=== PATIENT | male | born 2000 | race Caucasian/White ===

== ENCOUNTER 2024-10-11 06:33 | Emergency (ER) | payer SELFPAY ==
[2024-10-11 06:58] VITALS: TEMP 97
[2024-10-11 07:02] VITALS: O2SAT 98
--- NOTE | 2024-10-11 07:18 | ERPHSYRPT ---
- History of Present Illness Time Seen by Provider: 10/11/24 07:05 Historian: patient Exam Limitations: no limitations Patient Subjective Stated Complaint: pt states that he is suppose to have a scope. pt states that he has acid reflux. pt states he has epigastric pain Triage Nursing Assessment: pt ambulated into the er; pt is axo x4; pt is anxio us; c/o abd pain; pt states 7/10 pain to epigastric region; abd is flat, soft, nontender; hyperactive bowel sounds in all quads; c/o nausea, constipation; pt denies vomiting; mucus membranes pink and moist; skin PDW; no respiratory distress present; vitals wnl Physician History: This is a thin 24-year-old white male patient who arrives by private vehicle with a complaint of epigastric pain and reflux of acid symptoms. He has had the symptoms intermittently for the last 3 months. He has been seen in other emergency departments and has had radiographic studies, EKG and his heart evaluated per his report. In the last 3 days his symptoms of acid reflux have worsened and he has associated epigastric pain and nausea. He is not on any medications chronically. He has no primary care provider and is allergic to penicillin. Patient refuses CAT scan of the abdomen and pelvis. He denies chest pain. He denies shortness of breath. The patient informed me that he was told by another emergency department that he requires upper endoscopy. He has yet to schedule an outpatient primary care provider visit to be referred to a specialist to perform an upper endoscopy. Timing/Duration: day(s) (3), worse Quality: burning Abdominal Pain Onset Location: epigastric Pain Radiation: no radiation Severity of Pain-Max: mild (To moderate) Severity of Pain-Current: mild (To moderate) Modifying Factors: Improves With: nothing Associated Symptoms: nausea, No chest pain, No shortness of breath Previous symptoms: same symptoms as today, no recent treatment Allergies/Adverse Reactions: Penicillins Allergy (Verified 10/11/24 06:45) Hx Tetanus, Diphtheria Vaccination/Date Given: Yes Hx Influenza Vaccination/Date Given: No Hx Pneumococcal Vaccination/Date Given: No Immunizations Up to Date: No Travel Risk - International Travel Have you traveled outside of the country in past 3 weeks: No - Emerging Infectious Disease Are you exhibiting symptoms associated with any current EIDs: Yes - Review of Systems Constitutional: No Symptoms Eyes: No Symptoms Ears, Nose, & Throat: No Symptoms Respiratory: No Symptoms Cardiac: No Symptoms Abdominal/Gastrointestinal: Abdominal Pain (Epigastrium burning), Nausea, Constipation, No Vomiting, No Diarrhea Genitourinary Symptoms: No Symptoms Musculoskeletal: No Symptoms Skin: No Symptoms Neurological: No Symptoms Psychological: No Symptoms Endocrine: No Symptoms Hematologic/Lymphatic: No Symptoms Immunological/Allergic: No Symptoms All Other Systems: Reviewed and Negative - Past Medical History Pertinent Past Medical History: Yes Neurological History: No Pertinent History ENT History: No Pertinent History Cardiac History: No Pertinent History Respiratory History: No Pertinent History Endocrine Medical History: No Pertinent History Musculoskeletal History: No Pertinent History GI Medical History: GERD History: No Pertinent History Psycho-Social History: Anxiety Male Reproductive Disorders: No Pertinent History - Past Surgical History Past Surgical History: No - Social History Smoking Status: Current every day smoker Exposure to second hand smoke: No Drug Use: none - Social Determinants of Health Will the patient participate in the screening: Yes Do you worry about a steady place to live?: Yes Do you have any problems with any of the following?: No known problems In the past 12 months,have you had to go without utilities?: No Transportation Issues: No Has anyone in your support network made you feel unsafe?: No Have you or anyone in your house had to go without enough: No Comment: pt states that he is couch hopping - Nursing Vital Signs Nursing Vital Signs: Initial Vital Signs Temperature 97 F 10/11/24 06:45 Pulse Rate 86 10/11/24 06:45 Respiratory Rate 20 10/11/24 06:45 Blood Pressure 120/89 10/11/24 06:45 O2 Sat by Pulse Oximetry 100 10/11/24 06:45 Pain Scale Pain Intensity 7 - Physical Exam General Appearance: no apparent distress, alert, anxiety, thin Eye Exam: PERRL/EOMI, eyes nml inspection Ears, Nose, Throat Exam: normal ENT inspection, moist mucous membranes Neck Exam: normal inspection, non-tender, supple, full range of motion Respiratory Exam: normal breath sounds, lungs clear, airway intact, No chest tenderness, No respiratory distress Cardiovascular Exam: regular rate/rhythm, normal heart sounds, normal peripheral pulses Gastrointestinal/Abdomen Exam: soft, normal bowel sounds, tenderness (Mild epigastric tenderness to palpation), No guarding, No rebound Rectal Exam: not done Back Exam: normal inspection, normal range of motion, No CVA tenderness, No vertebral tenderness Extremity Exam: normal inspection, normal range of motion, pelvis stable Neurologic Exam: alert, oriented x 3, cooperative, wireless internet installer II-XII nml as tested, nml cerebellar function, nml station & gait, sensation nml Skin Exam: normal color, warm, dry Lymphatic Exam: No adenopathy SpO2 Interpretation: normal SpO2: 98 O2 Delivery: Room Air - Course Nursing assessment & vital signs reviewed: Yes Ordered Tests: Active Orders 24 hr Category Date Time Status IV Insertion STAT Care 10/11/24 07:18 Active ACO SDOH Referral ONCE Cons 10/11/24 06:58 Active AMYLASE Stat Lab 10/11/24 07:00 Completed CBC W DIFF Stat Lab 10/11/24 07:00 Completed CMP Stat Lab 10/11/24 07:00 Completed LIPASE Stat Lab 10/11/24 07:00 Completed Medication Summary Discontinued Medications Generic Name Dose Route Start Last Admin Trade Name Freq PRN Reason Stop Dose Admin Al Hydrox/Mg Hydrox/Simethicone Confirm 10/11/24 07:21 Mag Hydrox/Al Hydrox/Simeth 30 Ml Udcup Administered 10/11/24 07:22 Dose 30 ml .ROUTE .STK-MED ONE Lidocaine HCl Confirm 10/11/24 07:21 Lidocaine Hcl 2% Viscous 15 Ml Udcup Administered 10/11/24 07:22 Dose 15 ml .ROUTE .STK-MED ONE Magnesium Hydroxide 45 ml 10/11/24 07:18 10/11/24 07:28 Mag Hydrx/Alum Hyd/Simeth/Lido 45 Ml Bottle PO 10/11/24 07:19 45 ml STAT ONE Administration Ondansetron HCl 4 mg 10/11/24 07:18 10/11/24 07:27 Ondansetron Hcl 4 Mg/2 Ml Vial IV 10/11/24 07:19 4 mg STAT ONE Administration Ondansetron HCl Confirm 10/11/24 07:21 Ondansetron Hcl 4 Mg/2 Ml Vial Administered 10/11/24 07:22 Dose 4 mg .ROUTE .STK-MED ONE Pantoprazole Sodium 40 mg 10/11/24 07:18 10/11/24 07:28 Pantoprazole 40 Mg Vial IV 10/11/24 07:19 40 mg STAT ONE Administration Pantoprazole Sodium Confirm 10/11/24 07:21 Pantoprazole 40 Mg Vial Administered 10/11/24 07:22 Dose [address] ONE Lab/Rad Data: Laboratory Result Diagrams 10/11/24 07:00 10/11/24 07:00 Laboratory Results 10/11/24 10/11/24 Range/Units 07:00 07:00 WBC 6.3 (4.23-9.07) x10^3/uL RBC 4.65 (4.63-6.08) x10^6/uL Hgb 13.6 L (13.7-17.5) g/dL Hct 40.9 (40.1-51.0) % MCV 88.0 (79.0-92.2) fL MCH 29.2 (25.7-32.2) pg MCHC 33.3 (32.3-36.5) g/dL RDW 12.4 (11.6-14.4) % Plt Count 202 (163-337) x10^3/uL MPV 11.1 (9.4-12.4) fL Gran % 53.3 (34.0-67.9) % Immature Gran % (Auto) 0.2 (0.001-0.429) % Nucleat RBC Rel Count 0.0 (0.00-0.2) % Eos # (Auto) 0.16 (0.04-0.54) x10^3/uL Immature Gran # (Auto) 0.01 (0.001-0.031) x10^3u/L Absolute Lymphs (auto) 1.92 (1.32-3.57) x10^3/uL Absolute Monos (auto) 0.82 (0.30-0.82) x10^3/uL Absolute Nucleated RBC 0.00 (0.00-0.012) x10^3u/L Lymphocytes % 30.4 (21.8-53.1) % Monocytes % 13.0 H (5.3-12.2) % Eosinophils % 2.5 (0.8-7.0) % Basophils % 0.6 (0.2-1.2) % Absolute Granulocytes 3.36 (1.78-5.38) x10^3/uL Basophils # 0.04 (0.01-0.08) x10^3/uL Sodium 141 (135-145) mmol/L Potassium 3.5 (3.5-5.1) mmol/L Chloride 104 (98-107) mmol/L Carbon Dioxide 27 (22-30) mmol/L Anion Gap 13.9 (5-15) MEQ/L BUN 12 (9-20) mg/dL Creatinine 1.02 (0.66-1.25) mg/dL Estimated GFR 106.6 ML/MIN Glucose 99 (74-106) mg/dL Calcium 9.4 (8.4-10.2) mg/dL Total Bilirubin 0.70 (0.2-1.3) mg/dL AST 22 (17-59) U/L ALT 16 (0-50) U/L Alkaline Phosphatase 70 (38-126) U/L Serum Total Protein 7.7 (6.3-8.2) g/dL Albumin 4.6 (3.5-5.0) g/dL Amylase 85 (30-110) U/L Lipase 47 (23-300) U/L - Progress Progress: improved, pain not gone completely Progress Note: 10/11/24 07:28 My medical decision making and the assignment of moderate complexity is based on review of the patient's past medical history, review of the patient's medication list, reviewed patient drug allergy list, history present illness and physical findings on examination. The workup recommended in this patient is placement of an intravenous line, CBC, CMP, amylase, lipase, twelve-lead EKG, troponin level, CT scan of the abdomen pelvis without contrast. The patient is refusing cardiac workup as well as CT scan of the abdomen pelvis as he states he recently had these studies done. He only wants the lab drawn and provision of Protonix intravenously and oral GI cocktail. He will sign a refusal of tests form. Differential diagnosis includes but is not limited to esophagitis, gastritis, duodenal and/or gastric ulcer, cholecystitis, cholelithiasis 10/11/24 08:04 I interpreted the patient's laboratory data results. Based on the laboratory data results, the patient does not have an acute, emergent medical issue. Counseled pt/family regarding: lab results, diagnosis, need for follow-up Medical Desision Making - Diagnostic Testing Diagnostic test were ordered, analyzed, and reviewed by me: Yes - Risk of complications The pt has a mod risk of morbidity or mortality based on: Need for prescription drug management - Departure Departure Disposition: Home Clinical Impression: Epigastric pain Condition: Stable Critical Care Time: No Referrals: DOCTOR,NO FAMILY [Primary Care Provider] - Follow up/PCP as directed Additional Instructions: Drink plenty of fluids. Take your medications as prescribed. Avoid fatty greas y spicy foods. Avoid alcohol and tobacco intake in any form. Call a primary care provider on the list provided you to make arrangement for follow-up appointment and for referral to a automobile upholstery trim installer if indicated. Prescriptions: Pantoprazole 20 mg [Protonix 20MG Tablet] 20 mg PO DAILY #10 tab
[2024-10-11] MEDS ORDERED: XYLOCAINE VISCOUS 2% 15 ML CUP ONE (07:21)
[2024-10-11] MEDS ORDERED: PROTONIX 40 MG IV IV ONE (07:21)
[2024-10-11] MEDS ORDERED: Zofran 4 MG/2 ML VIAL ONE (07:21)
[2024-10-11] MEDS ORDERED: MAALOX ES 30 ML UNIT DOSE ONE (07:21)
[2024-10-11] MEDS: Zofran 4 MG/2 ML VIAL IV ONE (07:27)
[2024-10-11] MEDS: PROTONIX 40 MG IV IV ONE (07:28)
[2024-10-11] MEDS: GI COCKTAIL 45 ML (Maalox/Lidocaine) PO ONE (07:28)
[2024-10-11 07:42] LABS: Absolute Neutrophil Ct (ANC) 3.36 x10^3/uL (1.78-5.38); BASOPHIL % 0.6 % (0.2-1.2); Basophil (Absolute #) 0.04 x10^3/uL (0.01-0.08); Eosinophil % 2.5 % (0.8-7.0); Eosinophil (Absolute #) 0.16 x10^3/uL (0.04-0.54); Hematocrit 40.9 % (40.1-51.0); Hemoglobin 13.6 g/dL (13.7-17.5); IMMATURE GRAN # 0.01 x10^3u/L (0.001-0.031); IMMATURE GRAN % 0.2 % (0.001-0.429); Lymphocyte (Absolute #) 1.92 x10^3/uL (1.32-3.57); Lymphocytes % 30.4 % (21.8-53.1); Mean Corpuscular Hemoglobin 29.2 pg (25.7-32.2); Mean Corpuscular Hgb Concent. 33.3 g/dL (32.3-36.5); Mean Platelet Volume 11.1 fL (9.4-12.4); Monocyte (Absolute #) 0.82 x10^3/uL (0.30-0.82); Neutrophil % 53.3 % (34.0-67.9); Platelet Count 202 x10^3/uL (163-337); Red Blood Count 4.65 x10^6/uL (4.63-6.08); Red Cell Distribution Width 12.4 % (11.6-14.4); White Blood Count 6.3 x10^3/uL (4.23-9.07)
[2024-10-11 07:56] LABS: ALBUMIN 4.6 g/dL (3.5-5.0); ANION GAP 13.9 MEQ/L (5-15); BILIRUBIN,TOTAL 0.7 mg/dL (0.2-1.3); Calcium 9.4 mg/dL (8.4-10.2); Creatinine 1 1.02 mg/dL (0.66-1.25); EST GLOMERULAR FILTRATION RATE 106.6 ML/MIN; Potassium 3.5 mmol/L (3.5-5.1); Total Protein 7.7 g/dL (6.3-8.2)
[2024-10-11 08:23] VITALS: BP 116/76; PULSE 92; RESP 18
== END 2024-10-11 08:25 | disposition home or self-care (01) ==
LOC: ED 06:33
DX: R10.13 Epigastric pain (principal); R11.0 Nausea; Z72.0 Tobacco use; Z59.811 Housing instability, housed, with risk of homelessness; Z79.899 Other long term (current) drug therapy
CPT/HCPCS: 36415; 80053; 82150; 83690; 85025; 96374; 96375; 99284; J2405; A9270-GY